=== PATIENT | male | born 1955 | race Two or more races ===

== ENCOUNTER 2021-11-12 13:15 | Inpatient (IN) | payer BC, OTHER ==
[~2021-11-12] VITALS: Ht 177.8 cm; Wt 90.3 kg
[2021-11-12 11:30] VITALS: BP 129/70
[2021-11-12] MEDS ORDERED: LIDOCAINE 2%HCL (LOCAL ANESTH.) INJ 20ML MDV ID ONE (14:00)
[2021-11-12] MEDS ORDERED: BACITRACIN TOP OINT 1 UD PKG TOP ONE (14:00)
[2021-11-12] MEDS ORDERED: SODIUM CHLORIDE 0.9% 1,000 ML IV ONE (14:00)
[2021-11-12] MEDS ORDERED: TETANUS-DIPTH-ACEL PERTUSSIS 0.5ML SYR Tdap IM ONE (14:00)
[2021-11-12] MEDS ORDERED: SODIUM CHLORIDE 0.9% 500 ML IVB ONE (14:00)
[2021-11-12 14:20] LABS: Basophils # (auto) 0 10 ^3/uL (0-0.2); Basophils % (auto) 0.5 % (0.0-2.0); Eosinophils # (auto) 0.1 10 ^3/uL (0-0.8); Eosinophils % (auto) 1.2 % (0.0-7.0); Hematocrit 52.1 % (41.0-53.0); Hemoglobin 17.4 g/dL (13.5-17.5); Lymphocytes # (auto) 0.7 10 ^3/uL (0.4-5.4); Lymphocytes % (auto) 8.2 % (10.0-50.0); Mean Corpuscular Hemoglobin 30.6 pg (28.0-32.0); Mean Corpuscular Hgb Conc. 33.5 g/dL (32.0-36.0); Mean Corpuscular Volume 91.5 fL (80.0-100.0); Monocytes % (auto) 11.7 % (0.0-12.0); Neutrophils # (auto) 6.5 10 ^3/uL (1.6-8.6); Neutrophils % (auto) 78.4 % (37.0-80.0); Nucleated Red Blood Cells % 0.1 %; Red Blood Cells 5.69 10^6/uL (4.5-5.90); Red Cell Distribution Width 13.1 % (11.8-14.3); White Blood Cell 8.3 10^3/uL (4.4-10.8)
[2021-11-12 14:37] LABS: Anion Gap 13 (5-15); BUN/Creatinine Ratio 15.6; Blood Alcohol < 3.0 mg/dL (0-5); Blood Urea Nitrogen 15 mg/dL (7-18); Calcium 9.1 mg/dL (8.5-10.1); Carbon Dioxide 18 mmol/L (21-32); Chloride 106 mmol/L (98-107); GFR African American 101 mL/min; GFR Non-African American 84 mL/min; Glucose 155 mg/dL (74-106); Potassium 5.2 mmol/L (3.5-5.1); Sodium 137 mmol/L (136-145)
[2021-11-12 14:40] LABS: Alanine Aminotransferase 114 U/L (16-61); Alkaline Phosphatase 64 U/L (45-117); Aspartate Aminotransferase 82 U/L (15-37); Bilirubin, Total 0.9 mg/dL (0.2-1.0); Total Protein 7.4 g/dL (6.4-8.2)
[2021-11-12 16:16] LABS: Urine Bacteria NONE SEEN /hpf (None Seen); Urine Blood Negative /uL (Negative); Urine Hyaline Cast FEW /lpf (0 - 2); Urine Mucus FEW (None Seen); Urine Specific Gravity 1.019 (1.001-1.035); Urine WBC 1 /hpf (0 - 3)
[2021-11-12 16:26] LABS: Alcohol, Urine < 3.0 mg/dL (0-10); Amphetamine Screen, Urine NEGATIVE (NEGATIVE); Barbiturate Scree,Urine NEGATIVE (NEGATIVE); Benzodiazephine Screen, Urine NEGATIVE (NEGATIVE); Cannabinoid Screen, Urine NEGATIVE (NEGATIVE); Cocaine Screen, Urine NEGATIVE (NEGATIVE); Opiate Scree,Urine NEGATIVE (NEGATIVE); Phencyclidine Screen, Urine NEGATIVE (NEGATIVE)
[2021-11-12] MEDS ORDERED: FUROSEMIDE 20 MG/2 ML VIAL IV ONE ×2 (17:30→19:15)
[2021-11-12] MEDS ORDERED: MORPHINE SULFATE INJ 2 MG/ml SYRG IV ONE (18:15)
[2021-11-12] MEDS ORDERED: ONDANSETRON HCL 4 MG/2 ML VIAL IV ONE (18:15)
[2021-11-12] MEDS ORDERED: NITROGLYCERIN 0.4 MG SL TAB SL PRN (19:15)
[2021-11-12] MEDS ORDERED: MORPHINE SULFATE INJ 2 MG/ml SYRG IV PRN (19:15)
[2021-11-12] MEDS ORDERED: hydrALAZINE HCL 20 MG/ML VL IV PRN (19:15)
[2021-11-12] MEDS: SODIUM CHLORIDE 0.9% 1,000 ML IV SCH (19:50)
[2021-11-12 19:51] LABS: Cholesterol 180 mg/dL (< 200); HDL Cholesterol 44 mg/dL (40-59); LDL Cholesterol 131 mg/dL (< 100); Triglycerides 72 mg/dL (< 150)
[2021-11-12 23:30] VITALS: BP 129/70
[2021-11-13 05:00] VITALS: BP_SYST 149; BP_SYST 156; BP_DIAS 80; BP_DIAS 86
[2021-11-13] MEDS: SODIUM CHLORIDE 0.9% 1,000 ML IV SCH (05:04)
[2021-11-13 06:35] LABS: Basophils # (auto) 0 10 ^3/uL (0-0.2); Basophils % (auto) 0.2 % (0.0-2.0); Eosinophils # (auto) 0.1 10 ^3/uL (0-0.8); Hematocrit 48.6 % (41.0-53.0); Hemoglobin 16.4 g/dL (13.5-17.5); Lymphocytes # (auto) 0.6 10 ^3/uL (0.4-5.4); Lymphocytes % (auto) 6.8 % (10.0-50.0); Mean Corpuscular Hemoglobin 30.8 pg (28.0-32.0); Mean Corpuscular Hgb Conc. 33.8 g/dL (32.0-36.0); Mean Corpuscular Volume 91.2 fL (80.0-100.0); Monocytes # (auto) 1.3 10 ^3/uL (0-1.3); Monocytes % (auto) 14.5 % (0.0-12.0); Neutrophils # (auto) 6.7 10 ^3/uL (1.6-8.6); Neutrophils % (auto) 77.5 % (37.0-80.0); Nucleated Red Blood Cells % 0.1 %; Red Blood Cells 5.33 10^6/uL (4.5-5.90); Red Cell Distribution Width 13.3 % (11.8-14.3); White Blood Cell 8.7 10^3/uL (4.4-10.8)
[2021-11-13 06:49] LABS: Albumin 3.5 g/dL (3.4-5.0); BUN/Creatinine Ratio 17.1; Calcium 8.6 mg/dL (8.5-10.1); Potassium 4.1 mmol/L (3.5-5.1)
[2021-11-13 06:53] LABS: Bilirubin, Total 0.8 mg/dL (0.2-1.0)
[2021-11-13 09:30] VITALS: BP 168/88
[2021-11-13] MEDS: ACETAMINOPHEN 325 MG TAB PO PRN ×2 (11:00→23:00)
[2021-11-13] MEDS ORDERED: LOSARTAN POTASSIUM 50 MG TAB PO ONE (11:00)
[2021-11-13] MEDS: ENOXAPARIN SOD 40 MG/0.4 ML SYRINGE SC SCH (11:00)
[2021-11-13] MEDS ORDERED: HCTZ 25 MG TAB PO ONE (11:00)
[2021-11-13 12:48] VITALS: BP 172/94
[2021-11-13] MEDS ORDERED: amLODIPine BESYLATE 5 MG TAB PO ONE (15:00)
[2021-11-13 16:24] VITALS: BP 179/91
[2021-11-13 22:00] VITALS: BP 142/83
[2021-11-13] MEDS ORDERED: LORazepam 2MG/ML-1ML VIAL IV PRN (23:15)
[2021-11-14 05:30] VITALS: BP 146/82
[2021-11-14] MEDS: ACETAMINOPHEN 325 MG TAB PO PRN ×3 (06:01→18:38)
[2021-11-14 09:00] VITALS: BP 144/83
[2021-11-14] MEDS: amLODIPine BESYLATE 5 MG TAB PO SCH (10:46)
[2021-11-14] MEDS: ASPirin 81 mg TAB PO SCH (10:47)
[2021-11-14] MEDS: LOSARTAN POTASSIUM 50 MG TAB PO SCH (10:48)
[2021-11-14] MEDS: HCTZ 25 MG TAB PO SCH (10:48)
[2021-11-14] MEDS: ENOXAPARIN SOD 40 MG/0.4 ML SYRINGE SC SCH (10:49)
[2021-11-14] MEDS: FLUTICASONE PROP NASAL SPR 0.05 % (50MCG) 16GM EACHNOSTRI SCH ×2 (10:53→22:29)
[2021-11-14 13:00] VITALS: BP 139/89
[2021-11-14] MEDS ORDERED: levoFLOXacin 750MG 150 ML IV ONE (16:30)
[2021-11-14 17:00] VITALS: BP 131/82
[2021-11-14] MEDS: ATORVASTATIN 20 MG TAB PO SCH ×2 (18:39→22:29)
[2021-11-14 22:00] VITALS: BP 137/82
[2021-11-14] MEDS ORDERED: ATORVASTATIN 20 MG TAB PO SCH (22:00)
[2021-11-15 05:00] VITALS: BP 118/76
[2021-11-15 09:00] VITALS: BP 118/65
[2021-11-15] MEDS: FLUTICASONE PROP NASAL SPR 0.05 % (50MCG) 16GM EACHNOSTRI SCH ×2 (09:00→22:56)
[2021-11-15] MEDS: levoFLOXacin 750MG 150 ML IV SCH (09:00)
[2021-11-15] MEDS: ASPirin 81 mg TAB PO SCH (09:01)
[2021-11-15] MEDS: LOSARTAN POTASSIUM 50 MG TAB PO SCH (09:02)
[2021-11-15] MEDS: HCTZ 25 MG TAB PO SCH (09:02)
[2021-11-15] MEDS: ENOXAPARIN SOD 40 MG/0.4 ML SYRINGE SC SCH (09:03)
[2021-11-15] MEDS: ACETAMINOPHEN 325 MG TAB PO PRN ×3 (09:03→22:56)
[2021-11-15] MEDS: amLODIPine BESYLATE 5 MG TAB PO SCH (09:03)
[2021-11-15 13:00] VITALS: BP 104/59
[2021-11-15 17:00] VITALS: BP 100/59
[2021-11-15 22:00] VITALS: BP 111/69
[2021-11-15] MEDS: ATORVASTATIN 20 MG TAB PO SCH (22:56)
[2021-11-16 05:00] VITALS: BP 128/78
[2021-11-16] MEDS: levoFLOXacin 750MG 150 ML IV SCH (08:45)
[2021-11-16] MEDS: ENOXAPARIN SOD 40 MG/0.4 ML SYRINGE SC SCH (08:46)
[2021-11-16] MEDS: amLODIPine BESYLATE 5 MG TAB PO SCH (08:47)
[2021-11-16] MEDS: ASPirin 81 mg TAB PO SCH (08:47)
[2021-11-16] MEDS: LOSARTAN POTASSIUM 50 MG TAB PO SCH (08:47)
[2021-11-16] MEDS: ACETAMINOPHEN 325 MG TAB PO PRN (08:49)
[2021-11-16] MEDS: FLUTICASONE PROP NASAL SPR 0.05 % (50MCG) 16GM EACHNOSTRI SCH (08:50)
[2021-11-16 09:03] VITALS: BP 128/86
[2021-11-16] MEDS ORDERED: HCTZ 25 MG TAB PO SCH (10:00)
[2021-11-16 13:00] VITALS: BP 111/61
[2021-11-16] MEDS ORDERED: MIDAZOLAM HCL 2MG/2ML 2ml VIAL (1mg/ml) IV ONE (13:30)
[2021-11-16] MEDS ORDERED: LIDOCAINE VISCOUS 2% 15ML UD MT ONE (13:30)
[2021-11-16] MEDS ORDERED: ATOR40TA52 PO (15:11)
[2021-11-16] MEDS ORDERED: ASPI-325 PO (15:11)
[2021-11-16] MEDS ORDERED: AMLO-496 PO (15:12)
[2021-11-16] MEDS ORDERED: LEVO750T8 PO (15:13)
[2021-11-16] MEDS ORDERED: LOSA-69 PO (15:13)
[2021-11-16] MEDS ORDERED: HYDR25TA5 PO (15:13)
[2021-11-16 16:17] VITALS: BP 128/86
[2021-11-16 17:00] VITALS: BP 115/73
== END 2021-11-16 17:32 | disposition home or self-care (01) | DRG 64 ==
LOC: ER 13:15 → TELE 19:11 → TELE-WESTW 20:30
PROVIDERS: ADMIT Registered Nurse; ATTEND Internal Medicine Nephrology
PROC: 0HQ1XZZ Repair Face Skin, External Approach (ICD-10-PCS; principal; 2021-11-12)
PROC: B24BZZ4 Ultrasonography of Heart with Aorta, Transesophageal (ICD-10-PCS; 2021-11-16)
DX: I63.531 Cerebral infarction due to unspecified occlusion or stenosis of right posterior cerebral artery (principal); J18.9 Pneumonia, unspecified organism; I16.1 Hypertensive emergency; S01.81XA Laceration without foreign body of other part of head, initial encounter; R73.9 Hyperglycemia, unspecified; E87.5 Hyperkalemia; I10 Essential (primary) hypertension; K22.9 Disease of esophagus, unspecified; K21.9 Gastro-esophageal reflux disease without esophagitis; H57.02 Anisocoria; Z20.822 Contact with and (suspected) exposure to COVID-19; R09.89 Other specified symptoms and signs involving the circulatory and respiratory systems; R74.8 Abnormal levels of other serum enzymes; W18.39XA Other fall on same level, initial encounter; S01.112A Laceration without foreign body of left eyelid and periocular area, initial encounter; Z79.82 Long term (current) use of aspirin; Z79.899 Other long term (current) drug therapy; Z82.49 Family history of ischemic heart disease and other diseases of the circulatory system; Z86.73 Personal history of transient ischemic attack (TIA), and cerebral infarction without residual deficits; Y93.89 Activity, other specified; Y92.098 Other place in other non-institutional residence as the place of occurrence of the external cause; Y99.8 Other external cause status; Z87.891 Personal history of nicotine dependence; Z91.19 Patient's noncompliance with other medical treatment and regimen
CPT/HCPCS: 12013; 36415; 70450; 70547; 70551; 71045; 71250; 72125; 80053; 80061; 80307; 80320; 81001; 83036; 83735; 83880; 84443; 84484; 85025; 85379; 90471; 90715; 92610; 93005; 93306; 93312; 93886; 95819; 96361; 96374; 96375; 99152; G0378; J1956; J2250; J2405

== ENCOUNTER → 2021-12-28 | Outpatient (CLI) | payer BC ==
[~2021-12-28] MED LIST: AMLO-496 PO; ASPI-325 PO; ATOR40TA52 PO; HYDR25TA5 PO; LEVO750T8 PO; LOSA-69 PO
[2021-12-28 09:51] LABS: Basophils # (auto) 0 10 ^3/uL (0-0.2); Basophils % (auto) 0.6 % (0.0-2.0); Eosinophils # (auto) 0.1 10 ^3/uL (0-0.8); Eosinophils % (auto) 1.4 % (0.0-7.0); Hematocrit 48.6 % (41.0-53.0); Hemoglobin 16.8 g/dL (13.5-17.5); Lymphocytes # (auto) 0.9 10 ^3/uL (0.4-5.4); Lymphocytes % (auto) 12.6 % (10.0-50.0); Mean Corpuscular Hemoglobin 31.6 pg (28.0-32.0); Mean Corpuscular Hgb Conc. 34.6 g/dL (32.0-36.0); Mean Corpuscular Volume 91.3 fL (80.0-100.0); Monocytes % (auto) 14.9 % (0.0-12.0); Neutrophils # (auto) 4.9 10 ^3/uL (1.6-8.6); Neutrophils % (auto) 70.5 % (37.0-80.0); Nucleated Red Blood Cells % 0.1 %; Red Blood Cells 5.33 10^6/uL (4.5-5.90); White Blood Cell 6.9 10^3/uL (4.4-10.8)
[2021-12-28 10:37] LABS: Albumin 4.1 g/dL (3.4-5.0); Calcium 9.4 mg/dL (8.5-10.1); Potassium 3.9 mmol/L (3.5-5.1)
[2021-12-28 10:44] LABS: BUN/Creatinine Ratio 19.3; Bilirubin, Total 0.6 mg/dL (0.2-1.0); Total Protein 7.9 g/dL (6.4-8.2)
== END | disposition home or self-care (01) ==
LOC: LAB 09:31
PROVIDERS: ATTEND Student in an Organized Health Care Education/Training Program
DX: Z00.00 Encounter for general adult medical examination without abnormal findings (principal); I10 Essential (primary) hypertension; E78.5 Hyperlipidemia, unspecified; I67.81 Acute cerebrovascular insufficiency
CPT/HCPCS: 36415; 80053; 80061; 85025

== ENCOUNTER → 2022-02-08 | Outpatient (CLI) | payer BC ==
[2022-02-09 09:45] LABS: Hepatitis B Surface Antibody Negative (Negative)
[2022-02-09 10:22] LABS: Hepatitis A Total Antibody Negative (Negative)
[2022-02-09 14:18] LABS: Hepatitis C Antibody Positive (Negative)
== END | disposition home or self-care (01) ==
LOC: LAB 08:41
PROVIDERS: ATTEND Student in an Organized Health Care Education/Training Program
DX: R74.01 Elevation of levels of liver transaminase levels (principal)
CPT/HCPCS: 36415; 86704; 86706; 86708; 86803; 87340

== ENCOUNTER → 2022-03-07 | Outpatient (CLI) | payer BC ==
[2022-03-07 10:43] LABS: Basophils # (auto) 0 10 ^3/uL (0-0.2); Basophils % (auto) 0.6 % (0.0-2.0); Eosinophils # (auto) 0.2 10 ^3/uL (0-0.8); Hematocrit 48.1 % (41.0-53.0); Hemoglobin 16.6 g/dL (13.5-17.5); Lymphocytes # (auto) 0.7 10 ^3/uL (0.4-5.4); Lymphocytes % (auto) 10.6 % (10.0-50.0); Mean Corpuscular Hgb Conc. 34.5 g/dL (32.0-36.0); Mean Corpuscular Volume 92.8 fL (80.0-100.0); Monocytes # (auto) 0.9 10 ^3/uL (0-1.3); Monocytes % (auto) 14.3 % (0.0-12.0); Neutrophils # (auto) 4.5 10 ^3/uL (1.6-8.6); Neutrophils % (auto) 71.5 % (37.0-80.0); Red Blood Cells 5.18 10^6/uL (4.5-5.90); White Blood Cell 6.3 10^3/uL (4.4-10.8)
[2022-03-07 10:45] LABS: Albumin 4.3 g/dL (3.4-5.0); Calcium 9.7 mg/dL (8.5-10.1); Potassium 4.3 mmol/L (3.5-5.1)
[2022-03-07 10:47] LABS: BUN/Creatinine Ratio 23.5; Bilirubin, Total 0.6 mg/dL (0.2-1.0)
[2022-03-07 10:48] LABS: INR 0.96 (0.9-1.15)
== END | disposition home or self-care (01) ==
LOC: LAB 09:37
PROVIDERS: ATTEND Internal Medicine Gastroenterology
DX: B18.2 Chronic viral hepatitis C (principal); R93.3 Abnormal findings on diagnostic imaging of other parts of digestive tract
CPT/HCPCS: 36415; 80053; 82105; 85025; 85610

== ENCOUNTER → 2022-07-05 | Outpatient (CLI) | payer BC ==
[2022-07-05 09:34] LABS: Basophils # (auto) 0 10 ^3/uL (0-0.2); Basophils % (auto) 0.6 % (0.0-2.0); Eosinophils # (auto) 0.3 10 ^3/uL (0-0.8); Eosinophils % (auto) 5.5 % (0.0-7.0); Hematocrit 47.8 % (41.0-53.0); Hemoglobin 16.2 g/dL (13.5-17.5); Lymphocytes % (auto) 17.6 % (10.0-50.0); Mean Corpuscular Hemoglobin 31.5 pg (28.0-32.0); Mean Corpuscular Hgb Conc. 33.9 g/dL (32.0-36.0); Monocytes # (auto) 0.9 10 ^3/uL (0-1.3); Monocytes % (auto) 15.3 % (0.0-12.0); Neutrophils # (auto) 3.4 10 ^3/uL (1.6-8.6); Red Blood Cells 5.14 10^6/uL (4.5-5.90); White Blood Cell 5.6 10^3/uL (4.4-10.8)
[2022-07-05 09:49] LABS: INR 0.97 (0.9-1.15)
[2022-07-05 10:06] LABS: Potassium 3.9 mmol/L (3.5-5.1)
[2022-07-05 10:14] LABS: Albumin 4.4 g/dL (3.4-5.0); BUN/Creatinine Ratio 24.1 (10.0-20.0); Bilirubin, Total 0.7 mg/dL (0.2-1.0); Total Protein 8.1 g/dL (6.4-8.2)
== END | disposition home or self-care (01) ==
LOC: LAB 08:44
PROVIDERS: ATTEND Internal Medicine Gastroenterology
DX: B18.2 Chronic viral hepatitis C (principal)
CPT/HCPCS: 36415; 80053; 85025; 85610

== ENCOUNTER → 2024-07-08 | Outpatient (CLI) | payer BC ==
[~2024-07-08] MED LIST changes: -AMLO-496 PO; +AMLO1TAB23 PO; +LOSA-534 PO; -LOSA-69 PO
[2024-07-08 10:57] LABS: Urine Bacteria None Seen /hpf (None Seen)
[2024-07-08 11:14] LABS: Basophils # (auto) 0 10 ^3/uL (0-0.2); Basophils % (auto) 0.5 % (0.0-2.0); Eosinophils # (auto) 0.2 10 ^3/uL (0-0.8); Hematocrit 48.6 % (41.0-53.0); Lymphocytes % (auto) 12.3 % (10.0-50.0); Mean Corpuscular Hemoglobin 31.5 pg (28.0-32.0); Mean Corpuscular Hgb Conc. 34.9 g/dL (32.0-36.0); Mean Corpuscular Volume 90.1 fL (80.0-100.0); Monocytes # (auto) 0.9 10 ^3/uL (0-1.3); Monocytes % (auto) 11.6 % (0.0-12.0); Neutrophils % (auto) 73.6 % (37.0-80.0); Nucleated Red Blood Cells % 0.2 %; Platelet Count (auto) 167 10^3/uL (140-450); Red Blood Cells 5.39 10^6/uL (4.5-5.90); Red Cell Distribution Width 12.7 % (11.8-14.3); White Blood Cell 8.2 10^3/uL (4.4-10.8)
[2024-07-08 11:30] LABS: Alanine Aminotransferase 38 U/L (7-40); Alkaline Phosphatase 90 U/L (46-116); Anion Gap 10 (5-15); Aspartate Aminotransferase 28 U/L (13-40); BUN/Creatinine Ratio 19.8 (10.0-20.0); Bilirubin, Total 0.8 mg/dL (0.2-1.0); Blood Urea Nitrogen 18 mg/dL (9-23); Carbon Dioxide 25 mmol/L (20-31); Chloride 105 mmol/L (98-107); Cholesterol 165 mg/dL (< 200); HDL Cholesterol 43 mg/dL (40-59); LDL Cholesterol 100 mg/dL (< 100); Potassium 4.2 mmol/L (3.5-5.1); Sodium 140 mmol/L (136-145); Total Protein 7.8 g/dL (5.7-8.2); Triglycerides 148 mg/dL (< 150); Urine Blood Negative /uL (Negative); Urine Clarity Clear (Clear); Urine Color Yellow (Yellow); Urine Mucus FEW (None Seen); Urine Protein, UAD Negative (Negative); Urine Squamous Epithelial Cell None Seen /hpf (<5); Urine Urobilinogen Normal (Negative); Urine pH 5.5 (5.0-9.0)
[2024-07-08 11:32] LABS: Urine WBC < 1 /HPF (0-3)
[2024-07-08 11:46] LABS: Albumin 5.1 g/dL (3.2-4.8); Calcium 10.7 mg/dL (8.7-10.4); Glucose 121 mg/dL (74-106)
== END | disposition home or self-care (01) ==
LOC: LAB 10:44
PROVIDERS: ATTEND Nurse Practitioner
DX: I10 Essential (primary) hypertension (principal); E78.5 Hyperlipidemia, unspecified
CPT/HCPCS: 36415; 80053; 80061; 81001; 83036; 84153; 84443; 85025

== ENCOUNTER → 2024-11-13 | Outpatient (CLI) | payer BC ==
[2024-11-13 10:54] LABS: Alanine Aminotransferase 30 U/L (7-40); Alkaline Phosphatase 76 U/L (46-116); Anion Gap 10 (5-15); BUN/Creatinine Ratio 14.9 (10.0-20.0); Blood Urea Nitrogen 14 mg/dL (9-23); Calcium 10.2 mg/dL (8.7-10.4); Carbon Dioxide 26 mmol/L (20-31); Chloride 104 mmol/L (98-107); Potassium 3.9 mmol/L (3.5-5.1); Sodium 140 mmol/L (136-145)
[2024-11-13 10:55] LABS: Glucose 118 mg/dL (74-106); Total Protein 7.6 g/dL (5.7-8.2)
[2024-11-13 10:56] LABS: Bilirubin, Total 0.9 mg/dL (0.2-1.0)
[2024-11-13 10:57] LABS: Albumin 4.9 g/dL (3.2-4.8)
== END | disposition home or self-care (01) ==
LOC: LAB 10:01
PROVIDERS: ATTEND Nurse Practitioner
DX: R73.9 Hyperglycemia, unspecified (principal)
CPT/HCPCS: 36415; 80053; 82270; 83036